=== PATIENT | female | born 1985 | race African-American/Black ===

== ENCOUNTER 2016-09-05 03:24 | Emergency (ER) | payer BC ==
--- NOTE | 2016-09-05 06:34 | ER Document Report ---
ED General - General Chief Complaint: Hemorrhoids Stated Complaint: POSSIBLE HEMORRHOIDS TRAVEL OUTSIDE OF THE [place] IN LAST 30 DAYS: No - HPI Patient complains to provider of: rectal pain Notes: Patient coming in for evaluation of rectal pain. Patient states was seen by her [employer]AD[employer] yesterday was given preparation H cream for her hemorrhoids states hemorrhoids since giving . Patient denies any rectal bleeding denies any fevers chills nausea vomiting. - Related Data Allergies/Adverse Reactions: No Known Allergies Allergy (Unverified 09/05/16 03:32) Past Medical History - Social History Smoking Status: Never Smoker Chew tobacco use (# tins/day): No Frequency of alcohol use: None Drug Abuse: None Family History: Reviewed & Not Pertinent Patient has suicidal ideation: No Patient has homicidal ideation: No Pulmonary Medical History: Reports: Hx Asthma Renal/ Medical History: Denies: Hx Peritoneal Dialysis Past Surgical History: Reports: Hx Gynecologic Surgery - Review of Systems - Review of Systems Constitutional: No symptoms reported EENT: No symptoms reported Cardiovascular: No symptoms reported Respiratory: No symptoms reported Gastrointestinal: No symptoms reported Genitourinary: Other - Hemorrhoids Female Genitourinary: No symptoms reported Musculoskeletal: No symptoms reported Skin: No symptoms reported Hematologic/Lymphatic: No symptoms reported Neurological/Psychological: No symptoms reported -: Yes All other systems reviewed and negative Physical Exam - Vital signs Vitals: Temp Pulse BP Pulse Ox 98.0 F 90 121/86 H 96 09/05/16 03:31 09/05/16 03:31 09/05/16 03:31 09/05/16 03:31 Interpretation: Normal - General General appearance: Appears well, Alert - HEENT Head: Normocephalic, Atraumatic Eyes: Normal Pupils: PERRL - Respiratory Respiratory status: No respiratory distress Chest status: Nontender Breath sounds: Normal Chest palpation: Normal - Cardiovascular Rhythm: Regular Heart sounds: Normal auscultation Murmur: No - Abdominal Inspection: Normal Distension: No distension Bowel sounds: Normal Tenderness: Nontender Organomegaly: No organomegaly - Rectal Notes: Hemorrhoids at 12:00 and 3 o'clock position. - Back Back: Normal, Nontender - Extremities General upper extremity: Normal inspection, Nontender, Normal color, Normal ROM , Normal temperature General lower extremity: Normal inspection, Nontender, Normal color, Normal ROM , Normal temperature, Normal weight bearing. No: Christa's sign - Neurological Neuro grossly intact: Yes Cognition: Normal Orientation: AAOx4 Linda Coma Scale Eye Opening: Spontaneous [place] Coma Scale Verbal: Oriented [place] Coma Scale Motor: Obeys Commands [place] Coma Scale Total: 15 Speech: Normal Motor strength normal: LUE, RUE, LLE, RLE Sensory: Normal - Psychological Associated symptoms: Normal affect, Normal mood - Skin Skin Temperature: Warm Skin Moisture: Dry Skin Color: Normal Course - Re-evaluation Re-evalutation: 09/05/16 11:39 Patient will be treated with stool softeners lidocaine and suppositories. Patient is encouraged follow-up with GI - Vital Signs Vital signs: Temp Pulse Resp BP Pulse Ox 98.5 F 91 16 115/71 99 09/05/16 06:38 09/05/16 06:38 09/05/16 06:38 09/05/16 06:38 09/05/16 06:38 Discharge - Discharge Clinical Impression: Acute hemorrhoid Condition: Good Disposition: HOME, SELF-CARE Instructions: HC Hemorrhoid Cream ([facility]), Hemorrhoids ([facility]) Additional Instructions: Please follow-up with your doctor or the doctors provided. Please use medications as directed. Prescriptions: Docusate Sodium [Colace 100 mg Capsule] 100 mg PO BID #60 capsule Hydrocortisone Acetate [Anusol Hc 25 mg Supp.rect] 1 supp.rect ND BID #30 supp.rect Lidocaine [Recticare] 30 gm TP Q6 #1 cream..g. Forms: Return to Work Referrals: ANITA ZHONG MD [ACTIVE STAFF] - Follow up as needed
[2016-09-05 06:40] VITALS: BP 115/71
== END 2016-09-05 06:38 | disposition home or self-care (01) ==
LOC: ER 03:24 → EDBD 03:24 → ER 06:38
DX: K64.9 Unspecified hemorrhoids (principal)
CPT/HCPCS: 99282